=== PATIENT | female | born 1985 | race Caucasian/White ===

== ENCOUNTER 2017-12-04 18:03 | Emergency (ER) | payer OTHER ==
--- NOTE | 2017-12-04 18:18 | ED Physician Documentation ---
Upper Respiratory Symptoms - HISTORIAN Historian: patient - HPI Chief Complaint: Upper Respiratory Symptoms Additional Information: was seen in PCP office today and told she was positive for influenza, symptoms started saturday. she has fever and feels bad, she wants something to make her feel better, when asked she said"can't you give me fluids and get me back on my feet?" Onset: days ago Duration: constant Context: denies: recent foreign travel, insect bite(s) Severity: moderate Associated Symptoms: fever, chills Worsened by Deep Breath: No Further Comments: no - ROS CONST/EYES: weakness CVS/RESP: none LYMPH: denies: leg swelling, rash GI/: none NEURO/PSYCH: denies: fainting, dizziness MS/SKIN: joint pain, muscle aches - PAST HX Lung Disease: none PE Risk Factors: none Surgeries/Procedures: none Allergies/Adverse Reactions: Allergies Allergy/AdvReac Type Severity Reaction Status Date / Time No Known Allergies Allergy Verified 01/04/15 07:23 Home Medications: Ambulatory Orders Medication Instructions Recorded Baclofen 10 mg PO TID u2 12/04/17 Duloxetine HCl [Cymbalta] 60 mg PO DAILY 12/04/17 Gabapentin 100 mg PO DAILY av 12/04/17 Norgestimate-Ethinyl Estradiol 1 each PO DAILY u2 12/04/17 [Trinessa Tablet] - SOCIAL HX Smoking History: non-smoker Alcohol Use: none Drug Use: none - FAMILY HX Family History: none - VITAL SIGNS Vital Signs: Vital Signs Temp Pulse Resp BP Pulse Ox 110/61 01/04/15 07:46 - REVIEWED ASSESSMENTS Nursing Assessment Reviewed: Yes Vitals Reviewed: Yes Progress - Progress Progress: explained that she just had to rest take fluids and ride it out. Upper Respiratory Symptoms - EXAM General Appearance: no acute distress, alert EENT: nml ENT inspection Respiratory: no resp. distress Abdomen: non-tender Skin: color nml, no rash Neuro/Psych: oriented x3, neuro intact, mood/affect nml Discharge Clincal Impression: Viral URI Referrals: Anthony Majano MD [Primary Care Provider] - 2 Days Condition: Stable Disposition: HOME, SELF-CARE Decision to Admit: NO Date of Decison to Admit: 12/04/17 Decision Time: 18:20
[2017-12-04 18:34] VITALS: BP 112/68
== END 2017-12-04 18:20 | disposition home or self-care (01) ==
LOC: ED 18:03 → EDSTATUS 18:04 → ED 18:20
DX: J06.9 Acute upper respiratory infection, unspecified (principal)
CPT/HCPCS: 99282

== ENCOUNTER 2018-10-18 11:30 | Emergency (ER) | payer OTHER ==
[2018-10-18 11:48] VITALS: BP 108/79
[2018-10-18] MEDS ORDERED: IBUPROFEN 200 MG TABLET PO ONE (11:52)
[2018-10-18] MEDS ORDERED: LIDOCAINE HCL 2% VISC. ORAL 300MG/15ML UDC PO ONE (11:53)
[2018-10-18] MEDS ORDERED: ACETAMINOPHEN 160 MG/5 ML 60ML BOTTLE PO ONE (11:54)
[2018-10-18] MEDS ORDERED: ACETAMINOPHEN ORAL SOLUTION 325 MG/10.15 ML CUP ONE (11:58)
--- NOTE | 2018-10-18 12:18 | ED Physician Documentation ---
Sore Throat/Dental Pain - HPI Stated Complaint: Dental pain Chief Complaint: Dental Pain Additional Information: intro self as [employer]. pt presents to the ED c/o dental pain that started this morning. pt reports she has an dental surgery appt nov 12 in [place]. denies other symptoms or complaints. pt denies current chest pain, dyspnea, syncope/near syncope, headache, dizziness, visual disturbances, n/v/d, fever/chills, rash, sick contacts, dysuria, trauma. melena or hematochezia, bleeding or easy bruising, change in bowel or bladder function. anxiety or depression. ROS Negative unless otherwise specified. - ROS CONST: no problems - PAST HX Past History: dental surgery Other History: other ("fibromyalgia in my legs") Allergies/Adverse Reactions: Allergies Allergy/AdvReac Type Severity Reaction Status Date / Time No Known Allergies Allergy Verified 10/18/18 11:48 Home Medications: Ambulatory Orders Medication Instructions Recorded Baclofen 10 mg PO TID u2 12/04/17 Duloxetine HCl [Cymbalta] 60 mg PO DAILY 12/04/17 Gabapentin 100 mg PO DAILY av 12/04/17 Norgestimate-Ethinyl Estradiol 1 each PO DAILY u2 12/04/17 [Trinessa Tablet] - SOCIAL HX Smoking History: non-smoker Alcohol Use: none Drug Use: none - FAMILY HX Family History: No - VITAL SIGNS Vital Signs: Vital Signs Temp Pulse Resp BP Pulse Ox 98.8 F 61 14 108/79 99 10/18/18 11:31 10/18/18 11:31 10/18/18 11:31 10/18/18 11:31 10/18/18 11:31 - REVIEWED ASSESSMENTS Nursing Assessment Reviewed: Yes Vitals Reviewed: Yes ED Results Lab/Radiology - Orders Orders: ED Orders Category Date Time Status Acetaminophen [Tylenol] Med 10/18/18 11:54 Once 320 mg PO NOW ONE Acetaminophen [Tylenol] Med 10/18/18 11:58 Discontinued 325 mg .ROUTE .STK-MED ONE Ibuprofen [Advil] Med 10/18/18 11:52 Once 600 mg PO NOW ONE Lidocaine 2%Visc 15ml [Xylocaine] Med 10/18/18 11:53 Once 15 mg PO NOW ONE Dental Pain Physical Exam - EXAM General Appearance: no acute distress, alert Head/Neck: head nml inspection, trachea midline, no lymphadenopathy, thyroid nml, neck nml inspection, other (dental caries no erythema or edema. ) Eyes: eyes nml inspection, PERRL Mouth/Throat: lips nml, gums nml, pharynx nml, voice nml, no drooling, no air way problems, no thrush, membranes nml. No: gum swelling around teeth Ear/Nose: nml inspection Respiratory: no resp. distress CVS: reg. rate & rhythm, heart sounds nml Abdomen: soft, no organomegaly, normal bowel sounds, no abdominal bruit, no distension Extremities: non-tender, nml ROM Skin: normal color, warm/dry, NR, INT, PAL, DR Neuro/Psych: none Discharge Clincal Impression: Pain, dental Referrals: Anthony Majano MD [Primary Care Provider] - 2 Days Additional Instructions: Keep dentist appointment nov 12. ibuprofen 600 mg every 6 hours for pain dental balls: tylenol and lidocaine. set one soaked cotton ball in cheek every 2-4 hours as needed for pain. May also use OTC orajel on cotton if you run out. return if worse seek medical care immediately if difficult to wake, difficulty breathing, feeling faint or fainting, increased rash, chest pain, shortness of breath, or fever not controlled by tylenol/motrin. Follow up with primary care next week if needed. PLEASE UNDERSTAND THAT THIS IS AN EMERGENCY EVALUATION FOR YOUR COMPLAINT AND BY NATURE IS LIMITED AND NOT A SUBSTITUTE FOR ONGOING MEDICAL CARE. EVEN THOUGH TEST RESULTS AND TREATMENT PLAN WERE EXPLAINED THERE MAY BE A NEED FOR ADDITIONAL TESTING TO FULLY DETERMINE THE EXTENT OF YOUR ILLNESS/INJURY/OR CONCERN SO YOU SHOULD CONTACT AND OR ESTABLISH WITH A PRIMARY CARE PROVIDER (OR REFERRAL DOCTOR IF APPLICABLE) FOR AN APPOINTMENT SOON POSSIBLE. Condition: Good Disposition: 01 HOME, SELF-CARE Decision to Admit: NO Date of Decison to Admit: 10/18/18 Decision Time: 12:10
== END 2018-10-18 12:15 | disposition home or self-care (01) ==
LOC: ED 11:30
DX: K08.89 Other specified disorders of teeth and supporting structures (principal)
CPT/HCPCS: 99282; A9270